=== PATIENT | female | born 1995 | race Caucasian/White ===

== ENCOUNTER 2023-07-14 13:56 | Emergency (ER) | payer OTHER ==
[2023-07-14] MEDS ORDERED: Ketorolac Tromethamine 30 MG/ML VIAL ONE (18:40)
== END 2023-07-14 18:56 | disposition home or self-care (01) ==
LOC: CSHERS 13:56
DX: B07.0 Plantar wart (principal)
CPT/HCPCS: 96372; 99283; J1885

== ENCOUNTER 2024-03-12 06:51 | Day surgery (SDC) | payer OTHER ==
[2024-03-11 11:43] VITALS: BMI 43.0
[2024-03-12] MEDS ORDERED: PROPOFOL 40 ML ONE ×2 (08:51→09:17)
[2024-03-12] MEDS ORDERED: Lidocaine 1% PF 5 ML VIAL ONE (08:51)
== END 2024-03-12 10:00 | disposition home or self-care (01) ==
LOC: CSHSDC 06:51
PROVIDERS: ATTEND Internal Medicine Gastroenterology
PROC: 0DB58ZX Excision of Esophagus, Via Natural or Artificial Opening Endoscopic, Diagnostic (ICD-10-PCS; principal; 2024-03-12)
DX: K21.00 Gastro-esophageal reflux disease with esophagitis, without bleeding (principal); K22.10 Ulcer of esophagus without bleeding; K44.9 Diaphragmatic hernia without obstruction or gangrene
CPT/HCPCS: 88305; J2704